=== PATIENT | female | born 1985 | race Hispanic/Latino ===

== ENCOUNTER 2017-09-26 09:28 | Emergency (ER) | payer OTHER ==
[~2017-09-26] VITALS: Ht 142.2 cm; Wt 75.0 kg
[~2017-09-26 09:28] MED LIST: FLEXERIL PO; ULTRAM50 M1 PO
[2017-09-26 10:22] VITALS: BP 121/92
== END 2017-09-26 10:22 | disposition home or self-care (01) ==
LOC: ED 09:28
DX: T63.461A Toxic effect of venom of wasps, accidental (unintentional), initial encounter (principal); Y92.009 Unspecified place in unspecified non-institutional (private) residence as the place of occurrence of the external cause

== ENCOUNTER 2017-09-30 13:53 | Emergency (ER) | payer OTHER ==
[~2017-09-30] VITALS: Ht 142.2 cm; Wt 79.0 kg
[2017-09-30] MEDS ORDERED: DOXYCYC MONO100 M2 PO (15:28)
[2017-09-30] MEDS ORDERED: MEDDOSEPAK PO (15:28)
[2017-09-30] MEDS ORDERED: PEPCID20 MG PO (15:28)
[2017-09-30 15:35] VITALS: BP 112/78
== END 2017-09-30 15:35 | disposition home or self-care (01) ==
LOC: ED 13:53
DX: T63.461D Toxic effect of venom of wasps, accidental (unintentional), subsequent encounter (principal); L50.9 Urticaria, unspecified; L03.211 Cellulitis of face; L03.221 Cellulitis of neck